=== PATIENT | female | born 1995 | race Hispanic/Latino ===

== ENCOUNTER 2018-05-30 07:55 | Emergency (ER) | payer OTHER ==
[2018-05-30 08:06] VITALS: RESP 18; O2SAT 100
[2018-05-30] MEDS ORDERED: Oxycodone/Acetaminophen 5/325 mg Tab PO STA (08:42)
[2018-05-30] MEDS ORDERED: Amoxicillin-Clav 875-125 mg Tab PO STA (08:42)
--- NOTE | 2018-05-30 08:56 | ED PDOC ---
Arrival/HPI - General Chief Complaint: ENT Problem Time Seen by Provider: 05/30/18 08:06 Historian: Patient - History of Present Illness Narrative History of Present Illness (Text): 05/30/18 08:43 22 year old female with no significant past medical history presents to the Emergency department complaining of right ear pain since last night. Patient reports hearing loss in right ear, liquid discharge, and "popping" sensation. Alec chao informs history of multiple episodes of ear infections in the past. Patient states sinus infection for the past two weeks which has currently improved. Patient denies any recent swimming and any possible foreign body obstruction. Patient denies any fevers, chills, headache, dizziness, chest pain, shortness of breath, dyspnea on exertion, abdominal pain, nausea, vomiting, diarrhea, back pain, neck pain, or any other complaints. Time/Duration: Other (last night) Symptom Onset: Gradual Symptom Course: Unchanged Quality: Aching Activities at Onset: Light Context: Home Past Medical History - Provider Review Nursing Documentation Reviewed: Yes - Infectious Disease Hx of Infectious Diseases: None - Psychiatric Hx Psychophysiologic Disorder: Yes Hx Substance Use: No Family/Social History - Physician Review Nursing Documentation Reviewed: Yes Family/Social History: Unknown Family HX Smoking Status: Current Some Days Smoker Hx Alcohol Use: No Hx Substance Use: No Allergies/Home Meds Allergies/Adverse Reactions: Allergies No Known Allergies Allergy (Verified 05/30/18 08:06) Review of Systems - Physician Review All systems were reviewed & negative as marked: Yes - Review of Systems Constitutional: absent: Fevers ENT: Hearing Changes, Sinus Congestion, Other (right ear pain) Respiratory: absent: SOB Cardiovascular: absent: Chest Pain Gastrointestinal: absent: Abdominal Pain, Diarrhea, Nausea, Vomiting Musculoskeletal: absent: Back Pain, Neck Pain Skin: absent: Rash Neurological: absent: Headache, Dizziness Physical Exam Vital Signs Reviewed: Yes Vital Signs Temp Pulse Resp BP Pulse Ox 05/30/18 08:04 98.7 F 97 H 18 118/63 100 Temperature: Afebrile Blood Pressure: Normal Pulse: Regular Respiratory Rate: Normal Appearance: Positive for: Well-Appearing, Non-Toxic, Comfortable Pain Distress: Mild Mental Status: Positive for: Alert and Oriented X 3 - Systems Exam Head: Present: Atraumatic, Normocephalic Pupils: Present: PERRL Extroacular Muscles: Present: EOMI Conjunctiva: Present: Normal Ears: Present: TM Bulging (right TM), Other (left TM intact and opaque, no effusion noted and hyperemic ear canal. right TM erythema noted, tenderness with insertion of odoscope. ) Neck: Present: Normal Range of Motion Respiratory/Chest: Present: Clear to Auscultation, Good Air Exchange. No: Respiratory Distress, Accessory Muscle Use Cardiovascular: Present: Regular Rate and Rhythm, Normal S1, S2. No: Murmurs Abdomen: No: Tenderness, Distention, Peritoneal Signs Upper Extremity: Present: Normal Inspection. No: Cyanosis, Edema Lower Extremity: Present: Normal Inspection. No: Edema Neurological: Present: GCS=15, CN II-XII Intact, Speech Normal Skin: Present: Warm, Dry, Normal Color. No: Rashes Psychiatric: Present: Alert, Oriented x 3, Normal Insight, Normal Concentration Medical Decision Making ED Course and Treatment: 05/30/18 08:41 Impression: 22 year old female presents to the Emergency department complaining of aching pain in right ear. Differential Diagnosis included but are not limited to: -- Sinusitis -- Otitis media -- Mastoiditis Plan: -- Augmentin -- Percocet -- Reassess and disposition Prior Visits: Notes and results from previous visits were reviewed. Progress Notes: - Medication Orders Current Medication Orders: Discontinued Medications Amoxicillin/Clavulanate Potassium (Augmentin 875 Mg-125 Mg Tab) 1 tab PO STAT STA; Protocol Stop: 05/30/18 08:43 Oxycodone/Acetaminophen (Percocet 5/325 Mg Tab) 1 tab PO STAT STA Stop: 05/30/18 08:43 - Scribe Statement The provider has reviewed the documentation as recorded by the ArmenibAl malloy with Jitendra All medical record entries made by the Scribe were at my direction and personally dictated by me. I have reviewed the chart and agree that the record accurately reflects my personal performance of the history, physical exam, medical decision making, and the department course for this patient. I have also personally directed, reviewed, and agree with the discharge instructions and disposition. Disposition/Present on Arrival - Present on Arrival History of DVT/PE: No History of Uncontrolled Diabetes: No Urinary Catheter: No History of Decub. Ulcer: No History Surgical Site Infection Following: None - Disposition Diagnosis: Sinusitis, Acute otitis media Patient Problems: Current Active Problems Problem Status Onset Acute otitis media Acute Sinusitis Acute Condition: FAIR Discharge Instructions (ExitCare): Ear Infections (Otitis Media) (DC), Sinusitis, Adult (DC) Print Language: IRISH Additional Instructions: All medical record entries made by the Scribe were at my direction and personally dictated by me. I have reviewed the chart and agree that the record accurately reflects my personal performance of the history, physical exam, medical decision making, and the department course for this patient. I have also personally directed, reviewed, and agree with the discharge instructions and disposition. Please take Motrin every SIX hours WITH FOOD for pain Please DO NOT operate heavy machinery for 4 hours after receiving your medication in the Emergency Department Please take your medications as prescribed Please follow up with ENT as soon as possible Prescriptions: Amoxicillin/Clavulanate [Augmentin 875 MG-125 MG] 1 tab PO Q12H 10 Days #20 tab Ibuprofen [Motrin Tab] 600 mg PO Q6H PRN 6 Days #24 tab PRN Reason: Pain, Moderate (4-7) Referrals: Lucio Montero JD, MD [Primary Care Provider] - Follow up with primary August Ruffin DO [Staff Provider] - Follow up with primary Forms: [employer] (Greenlandic), WORK NOTE
[2018-05-30 09:14] VITALS: BP 132/90; PULSE 95; TEMP 98.1
== END 2018-05-30 09:14 | disposition home or self-care (01) ==
LOC: ED 07:55
DX: H66.90 Otitis media, unspecified, unspecified ear (principal); J32.9 Chronic sinusitis, unspecified